=== PATIENT | male | born 1995 | race Caucasian/White ===

== ENCOUNTER 2019-12-28 17:32 | Emergency (ER) | payer BC ==
--- NOTE | 2019-12-28 17:50 | ER Document Report ---
ED Medical Screen (RME) - General Stated Complaint: CHEST PAIN Time Seen by Provider: 12/28/19 17:47 Mode of Arrival: Wheelchair Information source: Patient Notes: HPI; 24-year-old male no previous medical problems presents to the emergency room with sudden onset of sharp stabbing left-sided chest pain that radiates into his left arm that started around 330 this afternoon. Denies any trauma or injury. No shortness of breath, no difficulty breathing. No recent travel. No history of PEs or DVTs. No medications for symptoms. PE: Alert and oriented x3. Mild distress noted. Lungs: Clear to auscultation with out rales, rhonchi, wheezes. Heart: Regular rate rhythm without murmurs, rubs, gallops. I have greeted and performed a rapid initial assessment of this patient. A comprehensive ED assessment and evaluation of the patient, analysis of test results and completion of the medical decision making process will be conducted by additional ED providers. I have specifically instructed the patient or fami ly members with the patient to immediately return to any nursing staff should anything change in the patient's condition or with their chief complaint. TRAVEL OUTSIDE OF THE [place] IN LAST 30 DAYS: No
--- NOTE | 2019-12-28 18:13 | RADIOLOGY REPORT (SQ) ---
EXAM DESCRIPTION: CHEST SINGLE VIEW IMAGES COMPLETED DATE/TIME: 12/28/2019 6:04 pm REASON FOR STUDY: chest pain COMPARISON: None. EXAM PARAMETERS: NUMBER OF VIEWS: One view. TECHNIQUE: Single frontal radiographic view of the chest acquired. RADIATION DOSE: NA LIMITATIONS: None. FINDINGS: LUNGS AND PLEURA: No opacities, masses or pneumothorax. No pleural effusion. MEDIASTINUM AND HILAR STRUCTURES: No masses. Contour normal. HEART AND VASCULAR STRUCTURES: Heart normal in size. Normal vasculature. BONES: No acute findings. HARDWARE: None in the chest. OTHER: No other significant finding. IMPRESSION: NO ACUTE RADIOGRAPHIC FINDING IN THE CHEST. TECHNICAL DOCUMENTATION: JOB ID: [id number] 2010 [employer]- All Rights Reserved Reading location - IP/workstation name: [email or web address]
[2019-12-28 18:41] LABS: ABSOLUTE BASOPHILS # (AUTO) 0.1 10^3/uL (0.0-0.2); ABSOLUTE EOSINOPHILS # (AUTO) 1.1 10^3/uL (0.0-0.6); ABSOLUTE LYMPHOCYTES (AUTO) 4.1 10^3/uL (0.5-4.7); ABSOLUTE MONOCYTES (AUTO) 0.6 10^3/uL (0.1-1.4); ABSOLUTE NEUT (AUTO) 7.1 10^3/uL (1.7-8.2); BASOPHILS % (AUTO) 0.6 % (0-2); EOSINOPHILS % (AUTO) 8.6 % (0-6); HEMATOCRIT 44.6 % (37.9-51.0); HEMOGLOBIN 15.8 g/dL (13.5-17.0); LYMPHOCYTES % (AUTO) 31.4 % (13-45); MEAN CORPUSCULAR HEMOGLOBIN 30.6 pg (27.0-33.4); MEAN CORPUSCULAR HGB CONC 35.4 g/dL (32.0-36.0); MEAN CORPUSCULAR VOLUME 86 fl (80-97); MONOCYTES % (AUTO) 4.6 % (3-13); PLATELET COUNT 262 10^3/uL (150-450); RED BLOOD COUNT 5.16 10^6/uL (4.35-5.55); RED CELL DISTRIBUTION WIDTH 13.9 % (11.5-14.0); SEGMENTED NEUTROPHILS % (AUTO) 54.8 % (42-78); TOTAL CELLS COUNTED % (AUTO) 100 %
[2019-12-28 18:52] LABS: APPEARANCE,URINE CLEAR; BILIRUBIN,URINE NEGATIVE (NEGATIVE); COLOR,URINE YELLOW; GLUCOSE, URINE NEGATIVE (NEGATIVE); KETONES,URINE NEGATIVE (NEGATIVE); LEUKOCYTE ESTERASE,URINE NEGATIVE (NEGATIVE); NITRITE,URINE NEGATIVE (NEGATIVE); PROTEIN,URINE NEGATIVE (NEGATIVE); UROBILINOGEN,URINE NEGATIVE mg/dL (<2.0)
[2019-12-28 18:58] LABS: ALBUMIN 4.5 g/dL (3.5-5.0); ALKALINE PHOSPHATASE 62 U/L (38-126); ANION GAP 8 (5-19); ASPARTATE AMINO TRANSFERASE 19 U/L (17-59); BILIRUBIN,DIRECT 0.1 mg/dL (0.0-0.4); BILIRUBIN,TOTAL 0.6 mg/dL (0.2-1.3); BLOOD UREA NITROGEN 5 mg/dL (7-20); CALCIUM 9.8 mg/dL (8.4-10.2); CARBON DIOXIDE 25 mmol/L (22-30); CHLORIDE 106 mmol/L (98-107); CREATINE KINASE 99 U/L (55-170); GLUCOSE 99 mg/dL (75-110); POTASSIUM 3.4 mmol/L (3.6-5.0); TOTAL PROTEIN 6.6 g/dL (6.3-8.2)
[2019-12-28 19:07] LABS: URINE AMPHETAMINES SCREEN NEGATIVE; URINE BARBITURATES SCREEN NEGATIVE; URINE BENZODIAZEPINES SCREEN NEGATIVE; URINE COCAINE SCREEN NEGATIVE; URINE MARIJUANA (THC) SCREEN NEGATIVE; URINE METHADONE SCREEN NEGATIVE; URINE PHENCYCLIDINE SCREEN NEGATIVE
[2019-12-28 19:09] LABS: TROPONIN I 0.013 ng/mL
[2019-12-28 19:19] LABS: CREATINE KINASE MB < 0.22 ng/mL (<4.55)
--- NOTE | 2019-12-29 00:29 | ER Document Report ---
ED General - General Chief Complaint: Chest Pain Stated Complaint: CHEST PAIN Time Seen by Provider: 12/28/19 17:47 Primary Care Provider: SANCHO ANGEL MD [COMMUNITY BASED STAFF] - Follow up as needed Mode of Arrival: Ambulatory Information source: Patient Notes: Patient is a 24-year-old male comes emergency room complaining of left anterior chest pain with some radiation down his left arm. Patient states it was about 330 on his ride back home from work when he noticed the pain onset as he was lifting up the steering well. Pain lasted from approximately 3:30 PM to 7 PM while he was here in emergency room. Patient states that [place]. He says is not very stressful and there is no lifting to it. 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 He was using his left arm to support or lift the rope with branches while he cut with his right arm. He states the weight he was lifting was over 200 pounds with a straight lift. Patient states he has some family history of cardiac problems and his father has a history of diabetes as mother has a little history of hypertension but he does smoke approximately half a pack a day. He has had a mild cough but nonproductive. Denies any fever. Denies any shortness of breath. Does state that it seems this discomfort could be positional at times. TRAVEL OUTSIDE OF THE [place] IN LAST 30 DAYS: No - HPI Onset: This afternoon Onset/Duration: Sudden, Gone Quality of pain: Achy Severity: Moderate Pain Level: 3 Associated symptoms: Nonproductive cough. 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 denies: Palpitations, Heart racing, Orthopnea, Edema Respiratory: See HPI, Hurts to breathe Gastrointestinal: No symptoms reported Genitourinary: No symptoms reported Male Genitourinary: No symptoms reported Musculoskeletal: No symptoms reported Skin: No symptoms reported Hematologic/Lymphatic: No symptoms reported Neurological/Psychological: No symptoms reported -: Yes All other systems reviewed and negative Physical Exam - Vital signs Vitals: Temp Pulse Resp BP Pulse Ox 98.5 F 64 18 130/79 H 100 12/28/19 17:45 12/28/19 17:45 12/28/19 17:45 12/28/19 17:45 12/28/19 17:45 Interpretation: Hypertensive - Notes Notes: PHYSICAL EXAMINATION: GENERAL: Well-appearing, well-nourished and in no acute distress. HEAD: Atraumatic, normocephalic. EYES: Pupils equal round and reactive to light, extraocular movements intact, sclera anicteric, conjunctiva are normal. ENT: Nares patent, oropharynx clear without exudates. Moist mucous membranes. LUNGS: Breath sounds clear to auscultation bilaterally and equal. No wheezes rales or rhonchi. HEART: Regular rate and rhythm without murmurs ABDOMEN: Soft, nontender, nondistended abdomen. No guarding, no rebound. No masses appreciated. Musculoskeletal: Examination patient's area concern is his left anterior chest. Examination shows patient has some reproducible tenderness in the intercostal spaces and around thoracic 6 5 and 6. It is anterior and just above the nipple line. He also has some increased discomfort and pain with movement against resistance abducting and towards the body with the left arm. Further evaluation of the upper extremities did not show any abnormal findings. 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 And he has mild discomfort with left shoulder raise with extended arms. NEUROLOGICAL: Normal speech, normal gait. Normal sensory, motor exams PSYCH: Normal mood, normal affect. SKIN: Warm, Dry, normal turgor, no rashes or lesions noted. Course - Re-evaluation Re-evalutation: 12/29/19 00:30 Patient was here for an extended period time secondary to labs and waiting for second troponin to come back. Patient's labs were all normal. Chest x-ray showed no acute findings. EKG also showed a normal sinus rhythm at about 61 bpm. 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 Currently patient is asymptomatic. He did not take any aspirin today. We have a discussion about smoking and how he should decrease that as well. At present time I will place patient on a lit tle bit of a muscle relaxer. He will follow-up outpatient with his primary care doctor. - Vital Signs Vital signs: Temp Pulse Resp BP Pulse Ox 98.5 F 64 18 130/79 H 100 12/28/19 17:45 12/28/19 17:45 12/28/19 17:45 12/28/19 17:45 12/28/19 17:45 - Laboratory Result Diagrams: 12/28/19 18:25 12/28/19 18:25 Laboratory results interpreted by me: 12/28/19 12/28/19 18:25 18:25 WBC 13.0 H Eos % (Auto) 8.6 H Absolute Eos (auto) 1.1 H Potassium 3.4 L BUN 5 L - Diagnostic Test Radiology reviewed: Reports reviewed Radiology results interpreted by me: 12/29/19 00:34 Negative chest x-ray for acute findings. - EKG Interpretation by Sc EKG shows normal: Sinus rhythm Rate: Normal Rhythm: NSR Lyons/QRS: No: Right axis deviation, Left axis deviation, RBBB, LBBB, IVCD Voltage: No: Increased voltage, Consistent with LVH, Consistent with RVH, Decreased voltage Additional EKG results interpreted by me: 12/29/19 00:35 Patient's EKG was performed at 1738 on 12/28/2019 Patient had sinus rhythm at 61 bpm no ectopy noted QRS normal QT normal. EKG was interpreted by the emergency room physician. Discharge - Discharge Clinical Impression: Costochondritis, acute, Atypical chest pain Condition: Stable Disposition: HOME, SELF-CARE Instructions: Chest Wall Pain ([facility]), Chest Pain of Unclear Cause ([facility]) Additional Instructions: Home and rest. Ice to the area 3 times a day. As we discussed you can also use Tylenol alternate with Motrin about every 4 hours. Do not exceed 600 mg of ibuprofen 3 times a day. And do not exceed more than 4 g of Tylenol in a 24- hour period. As we also stated give the chest some rest by not doing a lot of lifting for the next couple of days. Should you have any other concerns or problems you can return to ER for reevaluation. Highly suggest that she follow- up with a primary care doctor just to establish. As we also discussed you need to stop smoking as much as possible. Prescriptions: Methocarbamol [Robaxin 750 mg Tablet] 750 mg PO TID #21 tablet Forms: Elevated Blood Pressure, Smoking Cessation Education, Return to Work Referrals: SANCHO ANGEL MD [COMMUNITY BASED STAFF] - Follow up as needed
[2019-12-29 04:55] VITALS: BP 124/70
--- NOTE | 2019-12-30 00:32 | EKG REPORT ---
SEVERITY:- NORMAL ECG - SINUS RHYTHM : Confirmed by: Tawanda Rod 30-Dec-2019 00:31:23
== END 2019-12-29 01:05 | disposition home or self-care (01) ==
LOC: ER 17:32
DX: M94.0 Chondrocostal junction syndrome [Tietze] (principal); R07.89 Other chest pain; R05 Cough; F17.210 Nicotine dependence, cigarettes, uncomplicated; Z82.49 Family history of ischemic heart disease and other diseases of the circulatory system
CPT/HCPCS: 36415; 71045; 80053; 80307; 81001; 82550; 82553; 84484; 85025; 93005; 93010; 99285